=== PATIENT | male | born 1975 | race Caucasian/White ===

== ENCOUNTER 2017-03-30 18:17 | Emergency (ER) | payer OTHER ==
[~2017-03-30] VITALS: Ht 180.3 cm; Wt 79.4 kg
[~2017-03-30 18:17] MED LIST changes: -RANI-324 PO
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
[2017-03-30] MEDS ORDERED: RANI-324 PO (18:33)
[2017-03-30] MEDS ORDERED: HYDROmorphone(ER ONLY) 1 MG/ML IVP ONE ×3 (18:55→23:10)
[2017-03-30] MEDS ORDERED: NS(*) 0.9% 1000 ML BAG 1,000 ML IV ONE (19:00)
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
[2017-03-30] MEDS ORDERED: ONDANSETRON 4 MG/2 ML VIAL IVP ONE (23:10)
[2017-03-30 23:15] VITALS: BP 108/70
== END 2017-03-30 23:30 | disposition short-term general hospital (02) ==
LOC: ER 18:36
DX: S82.292A Other fracture of shaft of left tibia, initial encounter for closed fracture (principal); S82.492A Other fracture of shaft of left fibula, initial encounter for closed fracture; V00.321A Fall from snow-skis, initial encounter; Y93.23 Activity, snow (alpine) (downhill) skiing, snowboarding, sledding, tobogganing and snow tubing; Y92.838 Other recreation area as the place of occurrence of the external cause
CPT/HCPCS: 29505; 73552; 73562; 73590; 96361; 96374; 96375; 96376; 99285; J1170; J2405; J7030

== ENCOUNTER → 2017-03-30 | Outpatient (CLI) | payer OTHER ==
[~2017-03-30] MED LIST: CETI-176 PO; DICY10CA11 PO; DICY20TA70 PO; LOR5/325 PO; MONT10TA PO; OMEP-125 PO; ONDA4TAB PO; ONDA4TAB97 PO; OXYC-865 PO; RANI-324 PO; SIME125C52 PO; TRAM-420 PO
== END ==
LOC: AMB 23:35
PROVIDERS: ATTEND Nurse Practitioner
DX: S82.202A Unspecified fracture of shaft of left tibia, initial encounter for closed fracture (principal); S82.402A Unspecified fracture of shaft of left fibula, initial encounter for closed fracture; V00.328A Other snow-ski accident, initial encounter; Y93.23 Activity, snow (alpine) (downhill) skiing, snowboarding, sledding, tobogganing and snow tubing
CPT/HCPCS: A0425; A0426

== ENCOUNTER → 2017-03-30 | Outpatient (CLI) | payer OTHER | LOC: AMB 17:07 | PROVIDERS: ATTEND Nurse Practitioner | DX: M79.662 Pain in left lower leg (principal); M21.952 Unspecified acquired deformity of left thigh; V00.328A Other snow-ski accident, initial encounter; Y93.23 Activity, snow (alpine) (downhill) skiing, snowboarding, sledding, tobogganing and snow tubing; Y92.838 Other recreation area as the place of occurrence of the external cause | CPT/HCPCS: A0425; A0433 ==